=== PATIENT | male | born 1970 | race Caucasian/White ===

== ENCOUNTER 2017-10-26 05:53 | Emergency (ER) | payer SELFPAY ==
[2017-10-26] MEDS ORDERED: PREDNISONE 20 MG TAB PO ONE (06:19)
[2017-10-26] MEDS ORDERED: NAPROXEN 250 MG TABLET PO ONE (06:20)
--- NOTE | 2017-10-26 06:22 | Emergency Department Record ---
History of Present Illness - General Chief complaint: Extremity Problem Stated complaint: RIGHT WRIST,FOREARM,HAND PAIN Time Seen by Provider: 10/26/17 06:08 Source: Patient Mode of Arrival: Ambulatory Limitations: No limitations - History of Present Illness Initial comments: 47 yo male presents to ED for evaluation of right wrist pain that began early this morning. Patient reports aching pain to the right wrist that results in "shooting pain" with movement. Patient denies direct injury, but does reports carrying boxes yesterday. Patient also reports a history of Gout previously. Patient denies erythema, fevers, or chills. Patient denies health problems at his baseline. MD Complaint: Extremity pain, Joint pain Onset/Timin -: Days(s) Location: Right, Forearm History of Same: No -: Yes Arthralgia Radiation: Proximal Severity scale (1-10): 8 Quality: Sharp Consistency: Constant, Intermittent Improves with: Nothing Worsens with: Other (movement) Associated Symptoms: Denies other symptoms - Related Data Previous Rx's Medication Instructions Recorded Ibuprofen [Motrin] 800 mg PO Q6H PRN #30 tab 10/26/17 Prednisone [Prednisone 20Mg] 20 mg PO BID #15 tab 10/26/17 Allergies Allergy/AdvReac Type Severity Reaction Status Date / Time No Known Drug Allergies Allergy Verified 12/03/14 14:31 Travel Screening - Travel/Exposure Within Last 30 Days Have you traveled within the last 30 days?: No Review of Systems Constitutional: Denies: Chills, Fever, Malaise, Night sweats Eyes: Denies: Eye discharge, Eye pain ENT: Denies: Congestion, Ear pain, Epistaxis Respiratory: Denies: Cough, Dyspnea Cardiovascular: Denies: Chest pain, Dyspnea on exertion Endocrine: Denies: Fatigue Gastrointestinal: Denies: Abdominal pain, Nausea, Vomiting Genitourinary: Denies: Incontinence, Retention Musculoskeletal: Reports: Arthralgia. Denies: Back pain, Gout, Joint swelling Skin: Denies: Bruising, Change in color, Change in hair/nails Neurological: Denies: Abnormal gait, Confusion, Headache, Seizure Psychiatric: Denies: Anxiety Hematological/Lymphatic: Denies: Anemia, Blood Clots Past Medical History - SOCIAL HISTORY Smoking Status: Light tobacco smoker (<10/day) Alcohol Use: None Drug Use: None - RESPIRATORY Hx Respiratory Disorders: No - CARDIOVASCULAR Hx Cardio Disorders: No - NEURO Hx Neuro Disorders: No - GI Hx GI Disorders: No - Hx Genitourinary Disorders: No - ENDOCRINE Hx Endocrine Disorders: No - MUSCULOSKELETAL Hx Musculoskeletal Disorders: No - PSYCH Hx Psych Problems: No - HEMATOLOGY/ONCOLOGY Hx Hematology/Oncology Disorders: No Family Medical History Any Significant Family History?: No Physical Exam - General General Appearance: Alert, Oriented x3, Cooperative, Moderate distress Limitations: No limitations - Head Head exam: Atraumatic, Normocephalic, Normal inspection Head exam detail: negative: Abrasion, Contusion, Mendoza's sign, General tenderness, Hematoma, Laceration - Eye Eye exam: Normal appearance. negative: Conjunctival injection, Periorbital swelling, Periorbital tenderness, Scleral icterus - ENT Ear exam: negative: Auricular hematoma, Auricular trauma Nasal Exam: negative: Active bleeding, Discharge, Dried blood, Foreign body Mouth exam: negative: Drooling, Laceration, Muffled voice, Tongue elevation - Neck Neck exam: Normal inspection. negative: Meningismus, Tenderness - Respiratory Respiratory exam: Normal lung sounds bilaterally. negative: Rales, Respiratory distress, Rhonchi, Stridor - Cardiovascular Cardiovascular Exam: Regular rate, Normal rhythm, Normal heart sounds Peripheral Pulses: 3+: Radial (R) - GI/Abdominal GI/Abdominal exam: Soft. negative: Rebound, Rigid, Tenderness - Rectal Rectal exam: Deferred - exam: Deferred - Extremities Extremities exam: Tenderness, Other (Mild TTP to the wrist, mild pain with wrist extension/flexion radiating proximally, however pain worsens significantly with guille's test. Strong radial pulse is present, compartments are soft on examination of the forearm, no erythema or evidence for septic joint are present on examination.). negative: Calf tenderness, Pedal edema - Back Back exam: Denies: CVA tenderness (R), CVA tenderness (L) - Neurological Neurological exam: Alert, Normal gait, Oriented X3 - Psychiatric Psychiatric exam: Normal affect, Normal mood - Skin Skin exam: Normal color. negative: Abrasion Type of lesion: negative: abrasion Course Vital Signs 10/26/17 06:04 Temperature 98.6 F Pulse Rate [ 61 Pulse Ox Probe] Respiratory 18 Rate Blood Pressure 130/91 [Left Arm] Pulse Ox 99 - Reevaluation(s) Reevaluation #1: 10/26/17 06:28 Pain symptoms significantly worsen with guille's test-symptoms appear c/w De Quervain's tensosynovitis, although Gout may also be possible. Will treat with wrist splint, prednisone, and Motrin 800 mg as directed for his pain symptoms. Patient appears stable for discharge at this time. Disposition Disposition: Discharge Clinical Impression: De Quervain's tenosynovitis, right Disposition: Home, Self-Care Condition: (2) Stable Instructions: De Quervain Disease (ED) Additional Instructions: Return to ED if your symptoms worsen or if you have any concerns. Prednisone, Naprosyn as directed. Follow-up with your family doctor in 3-5 days as directed. Prescriptions: Ibuprofen [Motrin] 800 mg PO Q6H PRN #30 tab PRN Reason: Pain - Moderate (5-7) Prednisone [Prednisone 20Mg] 20 mg PO BID #15 tab Forms: Patient Portal Access Time of Disposition: 06:19 Quality - Quality Measures Quality Measures: N/A - Blood Pressure Screening Does Patient Have Any of the Following: No Blood Pressure Classification: Hypertensive Reading Systolic Measurement: 130 Diastolic Measurement: 91 Screening for High Blood Pressure: < First Hypertensive BP, F/U Documented > [ [id number]] First Hypertensive Follow-up Interventions: Referral to alternative/primary care provider.
== END 2017-10-26 06:42 | disposition home or self-care (01) ==
LOC: ER 05:53
DX: M65.4 Radial styloid tenosynovitis [de Quervain] (principal)
CPT/HCPCS: 99283; J7512

== ENCOUNTER 2019-05-01 08:08 | Day surgery (SDC) | payer BC ==
[2019-05-01] MEDS ORDERED: LIDOCAINE 2% MDV (20MG/ML) 20ML VIAL IV ONE (08:09)
[2019-05-01] MEDS ORDERED: PROPOFOL 10 MG/ML VIAL IV ONE (08:09)
--- NOTE | 2019-05-02 07:10 | Operative Note ---
DATE: 05/01/2019 OPERATION: COLONOSCOPY to the cecum with cold snare polypectomy x1. INDICATION: Colorectal cancer screening in this patient with strong family history of colon cancer in 2 grandparents. This is his first examination. He denies GI problems. ANESTHESIA: Intravenous sedation was administered by the department of anesthesiology and included Diprivan titrated to effect. PROCEDURE: Following informed consent from this alert individual including a discussion of the risks and benefits of the procedure and an opportunity for the patient to ask questions, the patient was in the left lateral decubitus position. A digital rectal examination was performed. No abnormalities were noted. Following this, the Olympus [id number] video colonoscope was inserted into the rectum without resistance. The rectal mucosa had a normal appearance with normal folds and distensibility. At the proximal rectum, there was a diminutive 4 mm polyp noted which was removed with cold snare polypectomy and suctioned through the colonoscope into a collection trap. The colonoscope was then advanced up through the bowel to the level of the cecum without much difficulty. Throughout the bowel the mucosa appeared normal, the folds were normal, and the bowel was fairly well distensible. The cecum was defined by noting the appendiceal orifice and ileocecal valve. From the base of the cecum, the colonoscope was then slowly withdrawn. The colon preparation was good. No additional changes were appreciated throughout the remainder of the bowel upon withdrawal. Retroflexion in the rectum was endoscopically unremarkable. The instrument was straightened and withdrawn. The patient tolerated the procedure well and was returned to the recovery area in stable condition. IMPRESSION: A 4 mm proximal rectal polyp removed with cold snare polypectomy. The remainder of the examination was unremarkable. RECOMMENDATIONS: Because of the patient's family history of colon cancer in both grandparents, I did recommend a repeat examination in 5 years' time or sooner if problems arise. Further recommendations may be forthcoming pending results of biopsy. As always, thank you for allowing me to participate in the care of your patient. TIMO
== END 2019-05-01 09:50 | disposition home or self-care (01) ==
LOC: HOP 08:08
PROVIDERS: ATTEND Internal Medicine Gastroenterology
DX: Z12.11 Encounter for screening for malignant neoplasm of colon (principal); K62.1 Rectal polyp; Z80.0 Family history of malignant neoplasm of digestive organs